=== PATIENT | female | born 1975 | race Caucasian/White ===

== ENCOUNTER 2017-10-05 15:50 | Outpatient (REF) | payer OTHER, SELFPAY ==
[2017-10-05 20:36] LABS: Cholesterol 144 mg/dL (50-200); HDL Cholesterol 60 mg/dL (40-60); LDL CHOLESTEROL 74 mg/dL (<100); Triglyceride 69 mg/dL (30-150)
== END 2017-10-05 15:51 ==
LOC: NCHCN 15:50
PROVIDERS: PCP Physician Assistant; Visit Provider Physician Assistant Medical
DX: Z00.00 Encounter for general adult medical examination without abnormal findings (principal); Z13.220 Encounter for screening for lipoid disorders
CPT/HCPCS: 80061; 83721

== ENCOUNTER 2019-08-08 16:01 | Outpatient (REF) | payer OTHER, SELFPAY ==
[2019-08-08 19:53] LABS: Abs Immature Grans 0.01 k/cumm (0.0-0.09); Absolute Basophil Count 0.01 k/cumm (0.0-0.2); Absolute Lymphocyte Count 1.65 k/cumm (1.2-3.4); Absolute Monocyte Count 0.36 k/cumm (0.11-0.7); Absolute Neutrophil Count 3.35 k/cumm (1.2-6.7); Basophils % 0.2; Eosinophils % 1.8; HCT 39.9 % (36.0-46.0); Immature Grans % 0.2 %; Lymphocytes % 30.1; Mean Corp. HGB Concentration 32.6 g/dL (32.0-36.0); Mean Corpuscular Hemoglobin 28.8 pg (27.0-33.0); Mean Corpuscular Volume 88.5 fL (80-95); Mean Platelet Volume 12.6 fL (8.0-11.0); Monocytes % 6.6; Neutrophils % 61.1; Platelet Count 223 x1000/uL (130-400); RBC 4.51 m/cumm (4.00-5.20); RBC Distribution Width 13.1 % (11.7-14.6); White Blood Cell Count 5.48 k/cumm (4.4-10.8)
[2019-08-08 20:20] LABS: ALT 23 U/L (14-59); AST 18 U/L (15-37); Albumin 4.1 g/dL (3.4-5.0); Alkaline Phosphatase 43 U/L (46-116); Anion Gap 10.9 mmol/L (3-11); BUN 9 mg/dL (7-18); Bilirubin, Total 0.5 mg/dL (0.2-1.0); CO2 26.1 mmol/L (21.0-32.0); CREATININE 0.86 mg/dL (0.55-1.02); Calcium 8.4 mg/dL (8.5-10.1); Calculated LDL 92 mg/dL (<100); Chloride 103 mmol/L (98-107); Cholesterol 182 mg/dL (<200); Glucose 83 mg/dL (74-106); HDL Cholesterol 78 mg/dL (40-60); Potassium 3.7 mmol/L (3.5-5.1); Sodium 140 mmol/L (136-145); TSH (W/Ref FT4) 1.53 uIU/mL (0.36-3.74); Total Protein 6.6 g/dL (6.4-8.2); Triglyceride 64 mg/dL (<150)
[2019-08-08 20:39] LABS: C-Reactive Protein 0.05 mg/dL (0.0-0.3)
[2019-08-08 21:43] LABS: ESR 7 mm/hr (0-20)
[2019-08-09 16:30] LABS: Rheumatoid Factor <8.6 IU/mL (<12.0)
[2019-08-10 10:16] LABS: Lyme Ab w Rflx to Lyme Confirm Negative (Negative)
[2019-08-11 18:15] LABS: Anaplasma phagocytophilum Negative (Negative); B. miyamotoi PCR Negative (Negative); Babesia divergens/MO-1 Negative (Negative); Babesia duncani Negative (Negative); Babesia microti Negative (Negative); Ehrlichia chaffeensis Negative (Negative); Ehrlichia ewingii/canis Negative (Negative); Ehrlichia muris eauclairensis Negative (Negative)
== END 2019-08-08 16:21 ==
LOC: NCHCN 16:01
PROVIDERS: PCP Physician Assistant; Visit Provider Physician Assistant
DX: Z00.00 Encounter for general adult medical examination without abnormal findings (principal); E04.1 Nontoxic single thyroid nodule; R06.02 Shortness of breath; M25.50 Pain in unspecified joint
CPT/HCPCS: 80053; 80061; 85652; 87798; 84443; 85025; 86140; 86431; 86618

== ENCOUNTER 2019-09-06 01:34 | Outpatient (CLI) | payer OTHER, SELFPAY ==
--- NOTE | 2019-10-19 09:18 | W.CARDEVENT ---
Date of service: 10/19/19 Time of Service: 09:18 Cardiac Event Recorder Referring Provider:: Evelin Indications:: Shortness of breath Cardiac Event Note: This is a 30-day event monitor ordered for indication of shortness of breath. ?The patient was in normal sinus rhythm for the majority of the recording with an average heart rate of 78 bpm. ?There were 0 critical and 0 serious detected events. ?There were 41 patient triggered events that were all associated with sinus rhythm and an occasional PVC. ?There were no episodes of atrial fibrillation, no pauses greater than 3 seconds no evidence of ventricular tachycardia and no high degree heart block.
== END 2019-09-06 01:54 ==
PROVIDERS: PCP Physician Assistant; Visit Provider Physician Assistant
DX: R06.02 Shortness of breath (principal)
CPT/HCPCS: 93270

== ENCOUNTER 2021-04-25 06:46 | Emergency (ER) | payer OTHER, SELFPAY ==
[2021-04-25 06:54] VITALS: BP 117/78; PULSE 70; RESP 18; TEMP 36.6; O2SAT 100
--- NOTE | 2021-04-25 06:56 | ED.GENADUL_ITS ---
Discharge Plan Disposition Patient Disposition: HOME Condition: Good Discharge Details Clinical Impression: Laceration of left index finger Primary Care Provider: Joann Waters ED Provider: Yogi Benton Home Meds and New Rx's Prescriptions: No Action No Known Home Meds 0RF Discharge Instructions Instructions: Care For Your Stitches (ED) Additional Instructions: Please leave the dressing on for 48hours, then you may remove and begin cleaning the wound at least twice a day with soap and water. Continue to apply antibiotic ointment. Do not directly soak the area. Watch for any signs of infection and return if any increasing redness, swelling, pain, drainage. You may return in 7 to 10 days to have the sutures removed. It is free if you return to the emergency department. You can also have your primary care provider remove them but there may be a small associated cost with this. If you notice any worsening of your symptoms, or any new symptoms such as vomiting, diarrhea, fever, chills, shortness of breath, chest pain, numbness, weakness, or fainting , please return immediately to the emergency department for reevaluation. Please follow up with your primary care provider as soon as possible for reassessment and reevaluation. As always, it was a pleasure participating in your medical care today. Referrals: Joann Waters [Primary Care Provider] - Medical Decision Making This is a 45-year-old female with no significant past medical history whose tetanus status was last updated in 2013 who presents today for left index finger injury. Patient is right-hand dominant. Patient was at work when her finger slipped and caught in a table saw with the tip of her finger. She was immediately washed, bandaged, and came to the ER for further management. She admits to mild pain at the tip of the finger. She denies any weakness. She states that the area was clean and free of rest, but there was certainly sawdust there. No other complaints at this time. No other modifying factors. Physical exam demonstrates 2 horizontal linear lacerations over the distal tip o f the left index finger. Strength appears intact. No evidence of foreign body. The area was cleaned and irrigated with copious amounts of normal saline. Area was anesthetized with let, sutures were placed. Patient tolerated procedure well. Discussed red flags for which to return. Tetanus was updated. I have extensively reviewed the treatment plan and discharge instructions with the patient. I have addressed all patient concerns at this time. The patient was made aware of what symptoms to monitor for that would warrant a return to the emergency department. Discussed the plan with the patient, they demonstrate verbal understanding and agreement with our assessment and plan at this time. The documentation in this chart was dictated using [employer] dictation software. Please excuse any dictation errors. HPI General Date/Time Provider Initiated Documentation: 04/25/21 06:49 . HPI Narrative: This is a 45-year-old female with no significant past medical history whose tetanus status was last updated in 2012 who presents today for left index finger injury. Patient is right-hand dominant. Patient was at work when her finger slipped and caught in a table saw with the tip of her finger. She was immediately washed, bandaged, and came to the ER for further management. She admits to mild pain at the tip of the finger. She denies any weakness. She states that the area was clean and free of rest, but there was certainly sawdust there. No other complaints at this time. No other modifying factors. Related Data Home Medications Medication Instructions Recorded Confirmed Unknown [No Known Home Meds] 02/10/13 02/10/13 Allergies Allergy/AdvReac Type Severity Reaction Status Date / Time pineapple [Pineapple] Allergy Intermediate Itching Unverified 02/10/13 15:14 Review of Systems All systems reviewed & are unremarkable except as noted in HPI and below PFSH All Active Problems (Updated 04/25/21 @ 07:04 by Yogi Benton DO) Laceration of left index finger (Acute) Social History Smoking/Tobacco Use Status: Never Smoking risk assessment performed?: Yes Alcohol Intake: current Alcohol Intake frequency: holidays/special occasions only Alcohol type: wine Drug use: Never Substance use type: does not use Do you feel safe at home: Yes Do you feel safe in your relationship?: Yes Exam Narrative Exam Narrative: 1.Const: Well-nourished, Well-developed, appearing stated age 2.Eyes: PERRL, no conjunctival injection, and symmetrical lids. 3.ENT: Atraumatic external nose and ears. Moist MM. Neck: Symmetric, trachea midline, No thyromegaly. 4.CVS: +S1/S2, No murmurs or gallops. Peripheral pulses 2+ and equal in all extremities. Brisk capillary refill in all extremities. 5.RESP: Unlabored respiratory effort. Clear to auscultation bilaterally. No wheezes rales or rhonchi 6.GI: Soft, Nontender/Nondistended, No hepatosplenomegaly. No guarding or rebound. 7.MSK: Left index finger demonstrate 2 linear lacerations over the distal tip of the finger traveling horizontally. Each 1 is about 1-1/2 to 2 cm. Lacerations appear superficial. Patient demonstrates good flexion and extension. Sensation is diminished at the area of the lacerations itself. However capillary refill is brisk and intact. 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 Sensation grossly intact, no focal neurologic deficits. 10.Psych: (AAO) x3. Appropriate mood and affect Procedures Laceration Laceration 1: Site: hand (index finger) Side (If applicable): left Size (cm): 2 Description: linear Depth: simple, single layer Local Anesthetic: Lidocaine 1% Amount of anesthesia used (mL): 5 Pre-repair: wound explored, irrigated extensively and deep structures intact Skin layer closed with: nylon Size (cm): 4-0 Number of sutures: 5 Technique: simple, interrupted
[2021-04-25] MEDS: Lidocaine/Epinephri/Tetracaine Topical Gel 3 ML (07:01)
[2021-04-25 07:49] VITALS: PULSE 71; RESP 20; O2SAT 99
== END 2021-04-25 07:50 | disposition home or self-care (01) ==
PROVIDERS: Emergency Provider Student in an Organized Health Care Education/Training Program; PCP Physician Assistant
DX: S61.211A Laceration without foreign body of left index finger without damage to nail, initial encounter (principal); W27.0XXA Contact with workbench tool, initial encounter; Y99.0 Civilian activity done for income or pay
CPT/HCPCS: 12001; 90471

== ENCOUNTER 2021-05-05 10:16 | Emergency (ER) | payer OTHER, SELFPAY ==
[2021-05-05 10:22] VITALS: BP 114/75; PULSE 89; RESP 16; TEMP 36.5; O2SAT 98
--- NOTE | 2021-05-05 10:37 | ED.GENADUL_ITS ---
Discharge Plan Disposition Patient Disposition: HOME Condition: Good Discharge Details Clinical Impression: Encounter for removal of sutures Primary Care Provider: Joann Waters ED Provider: Eufemia Michel Home Meds and New Rx's Prescriptions: No Action No Known Home Meds 0RF Discharge Instructions Instructions: Stitches Removal (ED) Additional Instructions: Your wound appears to be healing well. Continue to monitor wound for signs infection COVID redness, warmth, drainage, increased pain, fever/chills. If you develop these or other new/worsening symptoms please seek care urgently once again. Otherwise, please keep wound dressed while continues to heal, apply bacitracin over the area. Please follow-up with your primary care in the next 1 to 2 weeks for reevaluation of your wound. Please wear gloves and appropriate to prevent any kind of dirt or debris into the wound. Referrals: Joann Waters [Primary Care Provider] - Discharge Data Discharge Date/Time-TO BE ENTERED AT DEPARTURE: 05/05/21 11:25 Medical Decision Making Patient is a pleasant 45-year-old [id number] female presenting for suture removal of the left finger. 10 days ago, patient cut her finger with a table saw. Patient was seen here at which time #5 simple interrupted that she is as well as glue was applied over the wound. She denies any fevers or chills. States that she can occasionally have stabbing pain in the middle of the finger or pain behind the nail. On exam, patient appears nontoxic. No evidence of infection, no surrounding erythema, warmth, drainage. Wound appears slightly macerated and patient does report that she has been trying to soak it to remove the glue in preparation for sutures being removed. Secondary to the layer of the glue, it is hard to dionicio ntify the exact wound edges but it does appear to be healing well from the area as needed. #5 simple interrupted stitches were removed after allowing glue to dissolve them with bacitracin. Minimal bleeding after removal of the glue. Bacitracin and Band-Aid was applied. Patient will continue with wound care and keeping the wound covered. Strict return precautions were discussed. Advised Tylenol and ibuprofen as needed for discomfort. All the questions concerns were addressed and she is agreement this plan. Encourage follow-up with primary care in 1 to 2 weeks for reevaluation for wound. HPI General Date/Time Provider Initiated Documentation: 05/05/21 10:37 . History of Present Illness 45 year old F presents to the emergency department with the chief complaint of suture removal, described as mild, Quality is described as aching (can describe sharp pain with certain movement/pressure), and is localized to the left and upper extremity. Patient reports no radiation. Pat ient started experiencing this day(s) and it has been constant. improves with No relieving factors improve symptom(s), No exacerbating factors reported . Patient notes no other symptoms.. Patient did receive the following treatments prior to arrival, none (sutures placed previously, no other recent interventions) Related Data Home Medications Medication Instructions Recorded Confirmed Unknown [No Known Home Meds] 02/10/13 05/05/21 Allergies Allergy/AdvReac Type Severity Reaction Status Date / Time pineapple [Pineapple] Allergy Intermediate Itching Unverified 05/05/21 10:33 General Stated Complaint: SutureRem ELEAZAR: 5 Review of Systems Constitutional Constitutional: Reports as per HPI, Denies chills, Denies fever(s) and Denies weakness Musculoskeletal Musculoskeletal: Reports as per HPI and Denies tingling Integumentary/Breasts Skin/Breast: Reports as per HPI Neurologic Neurologic: Denies sensory deficit, Denies tingling and Denies weakness PFSH All Active Problems (Updated 05/05/21 @ 11:16 by SAVANNAH Page) Laceration of left index finger (Acute) Encounter for removal of sutures (Acute) Social History Smoking/Tobacco Use Status: Never Smoking risk assessment performed?: Yes Alcohol Intake: current Alcohol Intake frequency: holidays/special occasions only Alcohol type: wine Drug use: Never Substance use type: does not use Do you feel safe at home: Yes Do you feel safe in your relationship?: Yes Exam Const General: cooperative, healthy appearing, comfortable, no acute distress and well developed Nutritional Appearance: average body habitus and well nourished Orientation: alert and awake Resp Effort & Inspection: normal respiratory effort, able to speak in complete sentences and no respiratory distress Cardio Rate: regular rate Rhythm: regular rhythm Skin Trauma: laceration (healing well with no surrounding erythema, warmth, drainage) Neuro General: patient alert and patient awake Cognition: normal cognition Speech: speech normal Gait: normal gait Motor: muscle tone normal throughout Extrem Hand/finger images: 1. laceration to left index finger Psych Appearance: grossly normal and well kempt Mental Status: mental status grossly normal Speech and Movement: speech and movement normal Course Vital Signs Vital signs: Vital Signs Temperature 36.5 C 05/05/21 10:22 Pulse 89 05/05/21 10:22 Respiratory Rate 16 05/05/21 10:22 Blood Pressure 114/75 05/05/21 10:22 Pulse Oximetry 98 05/05/21 10:22 Temperature 36.5 C 05/05/21 10:22 Temperature Source Oral 05/05/21 10:22 Pulse 89 05/05/21 10:22 Respiratory Rate 16 05/05/21 10:22 Respiratory Effort Non-Labored 05/05/21 10:28 Blood Pressure 114/75 05/05/21 10:22 Blood Pressure Position Supine 05/05/21 10:22 Pulse Oximetry 98 05/05/21 10:22 Oxygen Delivery Method Room Air 05/05/21 10:22 Oxygen Flow Rate 0 05/05/21 10:22 Pain Level 0 05/05/21 10:22 PAWSS Have you Been Recently Intoxicated or Drunk Within the Last 30 days?: No Have you Ever Experienced Previous Episodes of Alcohol Withdrawal?: No Have you ever Experienced Withdrawal Seizures?: No Have you ever Experienced Delirium Tremens(DT)s?: No Have you ever undergone Alcohol Rehabilitation Treatment (i.e, inpt ot outpatient treatment programs)?: No Have you ever Experienced Blackouts?: No Have you ever Combined Alcohol with other Downers within the last 90 days?: No Have you ever Combined Alcohol with any other Substance of Abuse during the last 90 days?: No Positive Blood Alcohol level on Presentation? [PCS.BAL]: No Evidence of Increased Autonomic Activity (i.e. HR>120, tremor, sweating, agitation, nausea)?: No Result: 0
--- OUTSIDE RECORDS SUMMARY | 2021-05-05 10:49 | XMS_ITS ---
:1975 Author Care Team Providers Name Role Phone TIA NUÑEZ Primary Care Provider [phone] Allergies Code Code System Name Reaction Severity Status Onset NKDA ? Medications No Medications Reported Problems Name Status Onset Date Source ? Surveillance of [place] Contraception Done Active ? History Follow-up Visit Active ? 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 History Cervical Papanicolaou Smear Procedures Date Name Performed by ? 04/19/2017 Bilateral Complete Salpingectomy Informa tion not available 02/22/1989 Hernia Repair Information not avai lable ? Orthopedic Surgery Information not avai lable Notes: Ganglion cyst, right wrist (ea rly 2000's) Results Lab Results Date Name Specimen Result Interpretation Description Value Range Status Address ? 09/16/2020 Pap Test, MISC ? Hpv see report ? Final [facility] Thinprep, Hospita l Lab Cervical (Interna l): [address] ? ? MISC ? Pap see report ? Final [facility] L ab (Internal) : [address] ? ? MISC ? Report (see ? Final [facility] below) Hospital L ab (Internal) : [address] 04/19/2017 Pathology TISS ? Report results ? Final [facility] Study below Hospital L ab (Internal) : [address] 04/18/2017 Type + Screen, BLD ? Abo O ? Final [facility] L ab (Internal) : [address] ? ? BLD ? Rh positive ? Final [facility] L ab (Internal) : [address] ? ? BLD ? Ab Scrn negative negative Final [facility] L ab (Internal) : [address] 04/16/2017 Venipuncture BLD ? Venpn* ? ? Final [facility] L ab (Internal) : [address] 04/16/2017 beta-HCG, S ? HCG, <2.4 2.0-6.0 Final [facility] Quantitative, Quant [IU]/mL [IU]/mL H ospital Lab Serum or (Interna l): Plasma [address] 04/16/2017 CBC W/ Auto BLD ? Wbc 5.3 5.0-10.0 Final [facility] Diff 10*3/uL 10*3/uL Hospital Lab (Internal) : [address] ? ? BLD ? Rbc 4.50 4.10-5.30 Final [facility] ountry 10*6/uL 10*6/uL Hospital Lab (Internal) : [address] ? ? BLD ? Hgb 13.0 g/dL 12.0-16.0 Final [facility] h Country g/dL Hospital L ab (Internal) : [address] ? ? BLD ? Hct 39.2 % 37.0-47.0 Final [facility] ount % Hospital L ab (Internal) : [address] ? ? BLD ? Mcv 87.1 fL 80.0-96.0 Final [facility] fL Hospital L ab (Internal) : [address] ? ? BLD ? Mch 28.9 pg 26.0-32.0 Final [facility] pg Hospital L ab (Internal) : [address], [place] ? ? BLD ? Mchc 33.2 g/dL 31.0-35.0 Final [facility] Country g/dL Hospital L ab (Internal) : [address] ? ? BLD ? Rdw 12.7 % 11.5-14.5 Final [facility] ountry % Hospital L ab (Internal) : [address] ? ? BLD ? Plt 222 130-450 Final [place] [facility] 10*3/uL 10*3/uL Hospital Lab (Internal) : [address] ? ? BLD ? Anc 2.71 ? Final [place] [facility] 10*3/uL Hospital Lab (Internal) : [address] ? ? BLD ? Neutro 50.8 % 40.0-75.0 Final [facility] % Hospital L ab (Internal) : [address] ? ? BLD ? Lymph 40.2 % 20.0-50.0 Final [facility] Hospital L ab (Internal) : [address] ? ? BLD ? Pope 6.9 % 2.0-10.0 % Final [facility] L ab (Internal) : [address] ? ? BLD ? Eos 1.5 % 1.0-6.0 % Final [facility] L ab (Internal) : [address] ? ? BLD ? Baso 0.2 % 0.0-1.0 % Final [facility] L ab (Internal) : [address] ? ? BLD ? Ig 0.4 % 0.0-0.9 % Final [facility] L ab (Internal) : [address] Past Encounters 09/16/2020 Gynecologic Examination Afsaneh Ac, MITCHELL: [address] [place] [phone], Ph. Social History Tobacco Smoking Status Former Smoker Notes: quit 7- 8 years ago Vaccine List Vaccine Type rubella Td (adult), adsorbed Plan of Care Reminders Provider Appointments None ? ? recorded. Lab None ? ? recorded. Referral None ? ? recorded. Procedures None ? ? recorded. Surgeries None ? ? recorded. Imaging None ? ? recorded. Vitals 09/16/2020 02:00PM New Patient 30 Weight Blood Pressure 68.95 kg 102/64 mm[Hg] 04/13/2017 Height Weight Blood Pressure 172.72 cm 76.52 kg 116/72 mm[Hg] 04/05/2017 Weight Blood Pressure 76.16 kg 112/64 mm[Hg] 01/18/2017 Weight 76.48 kg 10/29/2016 Weight Blood Pressure 78.56 kg 112/66 mm[Hg] 08/11/2016 Height Weight Blood Pressure 172.72 cm 76.2 kg 116/80 mm[Hg] 05/26/2016 Weight Blood Pressure 75.3 kg 104/70 mm[Hg] 03/03/2016 Weight Blood Pressure 79.29 kg 114/82 mm[Hg] 12/02/2015 Weight Blood Pressure 79.38 kg 108/74 mm[Hg] 07/16/2015 Height Weight Blood Pressure 172.72 cm 77.02 kg 114/66 mm[Hg] 06/17/2015 Weight 75.3 kg 03/26/2015 Weight 75.47 kg 12/28/2014 Weight Blood Pressure 74.34 kg 114/74 mm[Hg] 10/09/2014 Weight 74.89 kg 07/12/2014 Height Weight Blood Pressure 172.72 cm 72.57 kg 100/60 mm[Hg] 03/08/2013 Height Weight Blood Pressure 172.72 cm 62.41 kg 100/60 mm[Hg] 05/09/2009 Height Weight Blood Pressure 172.72 cm 76.66 kg 100/60 mm[Hg] 05/01/2008 Weight Blood Pressure 81.19 kg 100/60 mm[Hg] 08/18/2007 Weight Blood Pressure 70.76 kg 104/68 mm[Hg] 11/02/2006 Height Weight Blood Pressure 172.72 cm 65.77 kg 110/60 mm[Hg] 10/27/2005 Height Weight Blood Pressure 172.72 cm 66.22 kg 120/64 mm[Hg] 10/21/2004 Height Weight Blood Pressure 172.72 cm 64.41 kg 112/64 mm[Hg]
== END 2021-05-05 11:25 | disposition home or self-care (01) ==
PROVIDERS: Emergency Provider Physician Assistant; PCP Physician Assistant
DX: S61.211D Laceration without foreign body of left index finger without damage to nail, subsequent encounter (principal); W29.8XXD Contact with other powered hand tools and household machinery, subsequent encounter; Z48.02 Encounter for removal of sutures

== ENCOUNTER 2022-05-08 00:41 | Outpatient (CLI) | payer BC, SELFPAY ==
--- NOTE | 2022-05-08 | DI.MRI_ITS ---
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 CONTRAST MATERIAL: IV Contrast: 16 mL of Dotarem contrast administered. COMPARISON: No exams were available for comparison FINDINGS: The examination is limited due to patient motion artifact. VENTRICLES AND EXTRA AXIAL SPACES: Normal in size and morphology for the patient's age. HEMORRHAGE: None. CEREBRAL PARENCHYMA: No focus of restricted diffusion to suggest acute infarct. No space-occupying le raquel identified. MIDLINE SHIFT: None. BRAINSTEM/CEREBELLUM: Normal. CALVARIUM: Normal. ENHANCEMENT: No suspicious enhancement identified. VISUALIZED PARANASAL SINUSES/MASTOIDS: There is mild mucosal thickening in the left maxillary sinus. The remaining visualized paranasal sinuses are clear. [place] OF [place]: Normal flow void. PITUITARY GLAND: Unremarkable. OTHER FINDINGS: IMPRESSION: Unremarkable MRI of the brain. DATA REPOSITORY:
[2022-05-08] MEDS: Gadoterate meglumine 20 ML VIAL IVP (10:42)
[2022-05-08] MEDS: Normal Saline Flush 10 ML SYR IVP (10:43)
== END 2022-05-08 01:01 ==
PROVIDERS: PCP Physician Assistant; Visit Provider Nurse Practitioner Family
DX: G43.109 Migraine with aura, not intractable, without status migrainosus (principal); J32.0 Chronic maxillary sinusitis; G44.51 Hemicrania continua; G44.81 Hypnic headache
CPT/HCPCS: 70553

== ENCOUNTER 2022-06-19 14:40 | Outpatient (REF) | payer BC, SELFPAY | END 2022-06-19 14:41 | disposition home or self-care (01) | LOC: NCHCN 14:40 | PROVIDERS: PCP Physician Assistant; Visit Provider Physician Assistant | DX: R30.0 Dysuria (principal) | CPT/HCPCS: 87077; 87086; 87186 ==

== ENCOUNTER 2023-09-03 23:34 | Outpatient (REF) | payer OTHER, SELFPAY ==
[2023-09-03 18:50] LABS: Abs Immature Grans 0.05 10^3/uL (0.0-0.06); Absolute Basophil Count 0.03 10^3/uL (0.0-0.2); Absolute Lymphocyte Count 1.72 10^3/uL (1.2-3.4); Absolute Monocyte Count 0.47 10^3/uL (0.1-0.8); Absolute Neutrophil Count 3.39 10^3/uL (1.2-6.7); Basophils % 0.5 %; Eosinophils % 1.7 %; HCT 44.8 % (36.0-46.0); HGB 14.6 g/dL (11.2-15.7); Immature Grans % 0.9 %; Lymphocytes % 29.9 %; MCHC 32.6 % (32.0-36.0); MCV 89 fL (80-95); MPV 11.7 fL (8.0-11.0); Monocytes % 8.2 %; Neutrophils % 58.8 %; Platelet Count 307 10^3/uL (130-400); RBC 5.03 10^6/uL (3.93-5.22); RDW 12.7 % (11.7-14.6); RDW-SD 41.1 fL; WBC 5.76 10^3/uL (4.4-10.8)
[2023-09-03 19:07] LABS: Iron 82 ug/dL (50-170); Total Iron Binding Capacity 331 ug/dL (250-450)
[2023-09-03 19:27] LABS: ALT 21 U/L (14-59); AST 21 U/L (15-37); Albumin 4.1 g/dL (3.4-5.0); Alkaline Phosphatase 68 U/L (46-116); Anion Gap 8.2 mmol/L (3-11); BUN 13 mg/dL (7-18); Bilirubin, Total 0.37 mg/dL (0.2-1.0); CO2 28.8 mmol/L (21.0-32.0); Calcium 9.4 mg/dL (8.5-10.1); Calculated LDL 118 mg/dL (<100); Chloride 107 mmol/L (98-107); Cholesterol 208 mg/dL (<200); Estimated GFR 70.36 (mL/min/1.73m2); Ferritin 138 ng/mL (8-252); Glucose 113 mg/dL (74-106); HDL Cholesterol 66 mg/dL (40-60); Potassium 4.1 mmol/L (3.5-5.1); Sodium 144 mmol/L (136-145); TSH (W/Ref FT4) 1.59 uIU/mL (0.36-3.74); Triglyceride 124 mg/dL (<150); Vitamin D 25 Total 40.5 ng/mL (30-100)
[2023-09-05 09:51] LABS: HIV-1/2 Ag & Ab Screen Negative (Negative)
[2023-09-06 11:54] LABS: Hepatitis C Ab w Rflx HCV PCR Negative (Negative)
[2023-09-06 13:20] LABS: Hemoglobin A1C 5.5 % (<5.7)
== END 2023-09-03 23:35 | disposition home or self-care (01) ==
LOC: NCHCN 23:34
PROVIDERS: PCP Physician Assistant; Visit Provider Physician Assistant
DX: R73.9 Hyperglycemia, unspecified (principal); E61.1 Iron deficiency; Z13.220 Encounter for screening for lipoid disorders; E04.1 Nontoxic single thyroid nodule; Z11.59 Encounter for screening for other viral diseases
CPT/HCPCS: 80053; 80061; 82306; 86803; 87389; 82728; 83036; 83540; 83550; 84443; 85025